=== PATIENT | female | born 1945 | race Caucasian/White ===

== ENCOUNTER 2022-09-05 18:30 | Emergency (ER) | payer MEDICARE, SELFPAY ==
[2022-09-05 18:35] VITALS: BP 150/90; PULSE 95; RESP 14; TEMP 36.7; O2SAT 100
--- NOTE | 2022-09-05 18:59 | ED.SKABFB ---
HPI - Skin/Abscess/Foreign Bdy General Chief complaint: Skin/Abscess/Foreign Body <LEON Ray Last Filed: 09/06/22 00:50> Stated complaint: wound on left leg <Sandrita Newell PA-C - Last Filed: 09/06/22 00:50> Time Seen by Provider: 09/05/22 18:37 <LEON Ray Last Filed: 09/06/22 00:50> History of Present Illness HPI narrative: 77 y/o F reports for evaluation of a ulceration with surrounding erythema x6 days on her left calf, worsening over the past 1-2 days. Pt states 6 days ago, she had an area on her left lower extremity frozen by dermatology and since then she has developed an ulceration with surrounding erythema. States she has not contacted her ems educator yet but plans to tomorrow. She denies fever, body aches or chills, nausea or vomiting. Denies drainage from site. She does not have a history of diabetes or vascular disease. She is allergic to penicillins and tetracyclines. <LEON Ray Last Filed: 09/06/22 00:50> Related Data Allergies/Adverse reactions: Allergies Allergy/AdvReac Type Severity Reaction Status Date / Time Penicillins Allergy Rash Verified 09/05/22 18:32 tetracycline Allergy Rash Verified 09/05/22 18:32 <Sandrita Newell PA-C - Last Filed: 09/06/22 00:50> Review of Systems Review of Systems: CONSTITUTIONAL: Denies fever, chills EYES: Denies visual changes, redness, or discharge. ENT: Denies rhinorrhea, congestion, sore throat, or otalgia. CARDIOVASCULAR: Denies chest pain, palpitations, or edema. RESPIRATORY: Denies cough or dyspnea. GASTROINTESTINAL: Denies abdominal pain, nausea, vomiting, or diarrhea. GENITOURINARY: Denies dysuria or hematuria. SKIN: See HPI MUSCULOSKELETAL: Denies back pain, joint pain, or myalgia. NEUROLOGIC: Denies headache, numbness, dizziness, or weakness. PSYCHIATRIC: Denies anxiety or depression. <LEON Ray Last Filed: 09/06/22 00:50> Exam Narrative: GENERAL: Well-appearing, in no acute distress. HEAD: Normocephalic EYES: PERRLA ENT: Nares clear. Mucous membranes moist. Oropharynx without tonsillar hypertrophy exudate or other lesions. NECK: Supple. CHEST: No respiratory distress. Clear to auscultation, no adventitious breath sounds. HEART: Regular rate and rhythm. No murmur heard. Normal peripheral pulses. ABDOMEN: Soft, nontender, normal active bowel sounds. EXTREMITIES: Normal range of motion. No edema. SKIN: 2.5cm annular stage 2 ulceration overlying the left calf with surrounding blanchable erythema and warmth. Wound bed with granulating tissue. No drainage, induration or fluctuation. Remainder of lower remedy unremarkable. DP pulse 2+. Cap refill less than 2. Sensation intact. NEURO: No focal deficits. Alert and oriented x3. PSYCH: Normal mood and affect. <Sandrita Newell PA-C - Last Filed: 09/06/22 00:50> Course [employer]/PA Physician Supervision This is a was performed by both a physician and an APC. I performed all aspects of the MDM as documented w/ the following additions: 77-year-old female presenting with erythema and redness around a cryotherapy site. The patient will be treated for soft tissue infection. Given return precautions. All questions answered. Patient in agreement w/ disposition. <Fred Bush MD - Last Filed: 09/06/22 01:24> Vital Signs Vital signs: Vital Signs Temperature 98.0 F 09/05/22 18:35 Pulse Rate 95 09/05/22 18:35 Respiratory Rate 14 09/05/22 18:35 Blood Pressure 150/90 H 09/05/22 18:35 Pulse Oximetry 100 09/05/22 18:35 Oxygen Delivery Room Air 09/05/22 18:35 Temperature 97.8 F 09/05/22 19:13 Pulse Rate 74 09/05/22 20:18 Respiratory Rate 18 09/05/22 20:18 Blood Pressure 118/74 09/05/22 20:18 Pulse Oximetry 100 09/05/22 20:18 Oxygen Delivery Room Air 09/05/22 18:35 <Sandrita Newell PA-C - Last Filed: 09/06/22 00:50> Vital Signs Temperature
[2022-09-05 19:13] VITALS: BP 144/70; PULSE 87; RESP 18; TEMP 36.6; O2SAT 97
[2022-09-05 19:44] LABS: Basophils Absolute Auto 0.1 K/mm3 (0.0-0.1); Basophils Percent Auto 1.1 % (0.2-1.2); Eosinophils Absolute Auto 0.1 K/mm3 (0-0.3); Eosinophils Percent Auto 1.2 % (0-4.4); Hematocrit 42.4 % (37.0-47.0); Hemoglobin 14.1 g/dL (12.0-15.0); Immature Granulocyte Absolute 0.02 K/mm3 (0.00-0.031); Immature Granulocyte Percent A 0.2 % (0-0.5); Lymphocytes Absolute Auto 1.66 K/mm3 (0.9-3.2); Lymphocytes Percent Auto 18.8 % (18.3-44.2); Mean Corpuscular HGB Conc 33.3 g/dl (32-36); Mean Corpuscular Hemoglobin 31.1 pg (26-34); Mean Corpuscular Volume 93.6 fl (80-100); Mean Platelet Volume 10.4 fl (7.4-10.4); Monocytes Absolute Auto 0.7 K/mm3 (0.1-0.6); Monocytes Percent Auto 8.1 % (2.6-8.5); Neutrophils Absolute Auto 6.2 K/mm3 (1.3-6.7); Neutrophils Percent Auto 70.6 % (45.5-73.1); Platelet Count Result 251 k/mm3 (150-375); Red Blood Count 4.53 M/mm3 (4.2-5.4); Red Cell Distribution Width 12.6 % (11.5-14.5); White Blood Count 8.9 K/mm3 (4.5-10.0)
[2022-09-05 19:55] LABS: Anion Gap 7 mmol/L (8-16); Blood Urea Nitrogen 15 mg/dL (7-17); Calcium 9.1 mg/dL (8.4-10.2); Carbon Dioxide 28 mmol/L (22-30); Chloride 103 mmol/L (98-107); Estimated CRCL calculation 53 ml/min; Estimated Glomerular Filt Rate > 60; Glucose 100 mg/dL (65-110); Sodium 138 mmol/L (137-145)
[2022-09-05 20:18] VITALS: BP 118/74; PULSE 74; RESP 18; O2SAT 100
[2022-09-05] MEDS: SULFAMETHOXAZOLE/TRIMETHOPRIM 800/160 MG DS TABLET 1 TAB PO (20:38)
== END 2022-09-05 20:43 | disposition home or self-care (01) ==
PROVIDERS: Emergency Provider Physician Assistant
DX: L03.116 Cellulitis of left lower limb (principal); L97.229 Non-pressure chronic ulcer of left calf with unspecified severity
CPT/HCPCS: 36415; 80048; 85025; 99283; A9270